=== PATIENT | female | born 1960 | race Caucasian/White ===

== ENCOUNTER 2019-09-12 13:30 | Outpatient (CLI) | payer OTHER, SELFPAY ==
--- NOTE | ~2019-09-12 | CT_ITS ---
EXAMINATION: CT abdomen wo con DATE: 09/12/2019 14:33 INDICATION: Left upper quadrant abdominal pain TECHNIQUE: Computed tomography (CT) of the abdomen was performed without intravenous contrast. Automa cece exposure control and iterative reconstruction technique were employed. Exam dose: 843.42 mGy-cm total exam DLP. COMPARISON: None. FINDINGS: There is discoid atelectasis or scarring in the lower lung zones. No consolidation is noted . Heart size is within normal range. There is no pericardial or pleural effusion. Small sliding hiatal hernia. The liver, spleen, pancreas, and adrenal glands are unremarkable. Approximately 3 mm nonobstructing lower pole right renal calculus. Approximately 1.7 cm exophytic soft tissue density is noted at the lateral aspect of the upper pole o f the left kidney; hypernephroma is not excluded. Further evaluation is recommended with either CT ex amination with IV contrast material or MRI. Normal caliber of the abdominal aorta. No intraperitoneal or retroperitoneal or pelvic mass lesion o r adenopathy or ascites is noted otherwise. Diverticulosis of the left and right colon. No CT evidence of diverticulitis. No bowel obstruction or intraperitoneal free air is detected. Included skeletal structures are unremarkable. IMPRESSION: 1.7 cm soft tissue exophytic mass at upper pole of left kidney; hypernephroma is not exc luded. Evaluation by CT examination with IV contrast material or MRI is recommended. Small nonobstructing lower pole right renal calculus Small sliding hiatal hernia Diverticulosis of the colon Reviewed, dictated and finalized at [facility]. Reviewed, dictated and finalized at location A. IMPRESSION: 1.7 cm soft tissue exophytic mass at upper pole of left kidney; hy pernephroma is not excluded. Evaluation by CT examination with IV contrast mate rial or MRI is recommended. Small nonobstructing lower pole right renal calculus Small sliding hiatal hernia Diverticulosis of the colon
== END 2019-09-12 13:31 | disposition home or self-care (01) ==
PROVIDERS: PCP Family Medicine; Visit Provider Family Medicine
DX: N20.0 Calculus of kidney (principal); K44.9 Diaphragmatic hernia without obstruction or gangrene; K57.90 Diverticulosis of intestine, part unspecified, without perforation or abscess without bleeding
CPT/HCPCS: 74150

== ENCOUNTER 2019-09-24 16:36 | Outpatient (CLI) | payer OTHER, SELFPAY ==
--- NOTE | ~2019-09-24 | MR_ITS ---
EXAMINATION: MR abdomen wo/w con DATE: 09/24/2019 17:46 INDICATION: Left kidney mass. TECHNIQUE: Magnetic resonance imaging (MRI) of the abdomen was performed without and with 20 mL Multi Ammy intravenous contrast. Sequences included coronal T2-weighted FS FSE, coronal and axial FIESTA F S, coronal LAVA-flex, axial LAVA, axial T2-weighted FSE, axial T1-weighted dual-echo FSPGR, axial STI R FSE, and axial DWI. Postcontrast sequences included coronal LAVA-flex and a time course of axial LA VA. COMPARISON: CT abdomen 09/12/2019 FINDINGS: There is diffuse hepatic steatosis. There is a 4 mm cyst in the liver. The gallbladder, common duct, spleen, pancreas, adrenal glands, and right kidney are normal. There is a 1.7 cm cyst in left kidney correlating with the CT abnormality. There is diverticulosis of the colon without evidence of diverti culitis. There are no dilated loops of bowel. There are no pathologically enlarged lymph nodes. There is no free intraperitoneal fluid. IMPRESSION: 1. Benign cyst in left kidney. Reviewed, dictated and finalized at location A.
[2019-09-24 17:29] LABS: Estimated Glomerular Filt Rate > 60
== END 2019-09-24 16:37 | disposition home or self-care (01) ==
PROVIDERS: PCP Family Medicine; Visit Provider Family Medicine
DX: N28.1 Cyst of kidney, acquired (principal)
CPT/HCPCS: 36415; 74183; A9577

== ENCOUNTER 2019-10-04 08:55 | Outpatient (CLI) | payer OTHER, SELFPAY ==
--- NOTE | ~2019-10-04 | MM_ITS ---
EXAMINATION: MM screening jamir BI w miquel HISTORY: Screening mammogram TECHNIQUE: Craniocaudal and mediolateral oblique 3-D tomosynthesis images were obtained and synthetic 2-D images were generated. CAD analysis was submitted and interpreted. COMPARISON: No prior mammogram is available for comparison at this institution. BREAST PARENCHYMAL COMPOSITION: There are scattered areas of fibroglandular density. FINDINGS: There are focal asymmetries in the right breast in the upper outer quadrant and subareolar locations. There is no mammographic evidence for malignancy in the left breast. IMPRESSION: 1. Focal right breast asymmetries. 2. Additional spot compression and mediolateral views with possible follow-up breast ultrasound recom mended. BI-RADS Category 0: Incomplete: Needs additional imaging evaluation. Reviewed, dictated and finalized at location A. IMPRESSION: 1. Focal right breast asymmetries. 2. Additional spot compression and mediolateral views with possible follow-up b reast ultrasound recommended. BI-RADS Category 0: Incomplete: Needs additional imaging evaluation.
== END 2019-10-04 08:56 | disposition home or self-care (01) ==
PROVIDERS: PCP Family Medicine; Visit Provider Obstetrics & Gynecology Gynecology
DX: Z12.31 Encounter for screening mammogram for malignant neoplasm of breast (principal); R92.8 Other abnormal and inconclusive findings on diagnostic imaging of breast
CPT/HCPCS: 77063; 77067

== ENCOUNTER → 2019-10-17 07:46 | Outpatient (CLI) | payer OTHER, SELFPAY ==
--- NOTE | ~2019-10-17 | MMUS_ITS ---
EXAMINATION: MM diagnostic mammo unilat RT, US breast RT limited HISTORY: Right breast asymmetries on screening mammogram TECHNIQUE: Additional 3-D tomosynthesis images of the right breast were performed and synthetic 2-D i mages were generated. CAD analysis was submitted and interpreted. High resolution limited right breas t ultrasound was performed. COMPARISON: 10/04/2019, 01/23/2015, 04/24/2013, 09/10/2010 FINDINGS: MAMMOGRAPHIC FINDINGS: There is a return to baseline fibroglandular appearance with spot compression in the areas questioned on recent screening mammogram. No suspicious mass, calcification, or architectural distortion is jean paul ntified. ULTRASOUND: There is a 10 mm x 5 mm oval, circumscribed, parallel, hypoechoic mass with no posterior features or internal vascularity at the 9:00 location projecting near the nipple. A 5 mm x 1 mm mass with similar sonographic features is seen at the 8:00 location 4.5 cm from the nipple. IMPRESSION: 1. Probably benign right breast masses. 2. Recommend 6 month follow-up right diagnostic mammogram and ultrasound. BI-RADS category 3, probably benign findings. Reviewed, dictated and finalized at location A. IMPRESSION: 1. Probably benign right breast masses. 2. Recommend 6 month follow-up right diagnostic mammogram and ultrasound. BI-RADS category 3, probably benign findings.
== END ==
PROVIDERS: Visit Provider Obstetrics & Gynecology Gynecology
DX: R92.8 Other abnormal and inconclusive findings on diagnostic imaging of breast (principal)
CPT/HCPCS: 76642; 77065

== ENCOUNTER → 2020-01-19 10:47 | Outpatient (CLI) | payer OTHER, SELFPAY ==
--- NOTE | ~2020-01-19 | US_ITS ---
EXAMINATION: US transvaginal DATE: 01/19/2020 11:15 INDICATION: Postmenopausal bleeding TECHNIQUE: Multiple endovaginal sonographic images of the pelvis were obtained. COMPARISON: None. FINDINGS: The uterus measures 5.5 x 2.5 x 3.8 cm. The endometrial complex measures 4 mm. The ovaries are not visualized however no adnexal abnormality is seen. There is no free fluid in the pelvis. IMPRESSION: 1. No sonographic correlate for the patient's symptoms. Reviewed, dictated and finalized at location A.
== END ==
PROVIDERS: Visit Provider Obstetrics & Gynecology Gynecology
DX: N95.0 Postmenopausal bleeding (principal)
CPT/HCPCS: 76830

== ENCOUNTER 2020-06-23 17:31 | Outpatient (CLI) | payer BC, SELFPAY | END 2020-06-23 17:32 | disposition home or self-care (01) | LOC: ANHCOVIDVC 17:31 | PROVIDERS: PCP Obstetrics & Gynecology Gynecology | DX: Z23 Encounter for immunization (principal) | CPT/HCPCS: 0001A; 91300 ==

== ENCOUNTER 2020-07-14 17:29 | Outpatient (CLI) | payer BC, SELFPAY | END 2020-07-14 17:30 | disposition home or self-care (01) | LOC: ANHCOVIDVC 17:29 | PROVIDERS: PCP Obstetrics & Gynecology Gynecology | DX: Z23 Encounter for immunization (principal) | CPT/HCPCS: 0002A; 91300 ==

== ENCOUNTER → 2020-10-12 09:14 | Outpatient (CLI) | payer BC, SELFPAY ==
--- NOTE | ~2020-10-12 | MMUS_ITS ---
EXAMINATION: MM diagnostic jamir BI w miquel, US breast RT limited HISTORY: Patient overdue for follow-up of probably benign right breast masses TECHNIQUE: Craniocaudal, mediolateral, and mediolateral oblique 3-D tomosynthesis images of the marcelina ts were performed and synthetic 2-D images were generated. CAD analysis was submitted and interpreted . High resolution limited right breast ultrasound was performed. COMPARISON: 10/17/2019, 10/04/2019, 01/23/2015 BREAST PARENCHYMAL COMPOSITION: There are scattered areas of fibroglandular density. FINDINGS: MAMMOGRAPHIC FINDINGS: There is no evidence of suspicious mass, calcification, or architectural distortion in either breast to suggest malignancy. There has been no suspicious interval change. ULTRASOUND: There is a 1.3 x 0.4 cm oval, circumscribed, parallel, hypoechoic mass with no posterior features or internal vascularity at the 9:00 location near the nipple which is not significantly changed. A 3 mm x 1 mm mass with similar sonographic features at the 8:00 location 4.5 cm from the nipple is decrease d in size, consistent with a benign finding. IMPRESSION: 1. Probably benign sonographically detected right breast mass. 2. Given one year of interval stability, recommend 12 month followup diagnostic mammogram and ultraso und. BI-RADS category 3, probably benign findings. Reviewed, dictated and finalized at location A. IMPRESSION: 1. Probably benign sonographically detected right breast mass. 2. Given one year of interval stability, recommend 12 month followup diagnostic mammogram and ultrasound. BI-RADS category 3, probably benign findings.
== END ==
PROVIDERS: PCP Family Medicine; Visit Provider Obstetrics & Gynecology Gynecology
DX: R92.8 Other abnormal and inconclusive findings on diagnostic imaging of breast (principal)
CPT/HCPCS: 76642; 77062; 77066; G0279

== ENCOUNTER → 2022-01-06 08:52 | Outpatient (CLI) | payer BC, SELFPAY ==
--- NOTE | ~2022-01-06 | MMUS_ITS ---
EXAMINATION: MM diagnostic jamir BI w miquel, US breast RT limited HISTORY: 12 month follow-up TECHNIQUE: ML, MLO and CC 3-D tomosynthesis images of both breasts were performed and synthetic 2-D i mages were generated. CAD analysis was submitted and interpreted. High resolution limited right breas t ultrasound was performed. COMPARISON: 10/12/2020 bilateral diagnostic mammogram and limited right breast ultrasound 10/17/2019 diagnostic right mammogram and limited right breast ultrasound 10/04/2019 bilateral screening mammogram BREAST PARENCHYMAL COMPOSITION: There are scattered areas of fibroglandular density. FINDINGS: MAMMOGRAPHIC FINDINGS: No suspicious mass or architectural distortion, malignant calcification, skin thickening or retractio n or significant new or developing density is detected. ULTRASOUND: 9:00 near nipple: 3.5 x 4.4 x 6.2 mm parallel circumscribed hypoechoic lesion without suspicious shad owing. This is significantly diminished in size since 10/12/2020, consistent with benign process. 10:00 4.5 cm from nipple: Parallel circumscribed sonolucency measuring 1.2 x 2.4 x 2.8 mm, stable, be nign in appearance. IMPRESSION: 1. No mammographic evidence of malignancy 2. Routine annual mammographic screening is recommended BI-RADS Category 2: Benign finding(s). Reviewed, dictated and finalized at location A. IMPRESSION: 1. No mammographic evidence of malignancy 2. Routine annual mammographic screening is recommended BI-RADS Category 2: Benign finding(s).
== END ==
PROVIDERS: PCP Family Medicine; Visit Provider Obstetrics & Gynecology Gynecology
DX: R92.8 Other abnormal and inconclusive findings on diagnostic imaging of breast (principal)
CPT/HCPCS: 76642; 77062; 77066; G0279

== ENCOUNTER 2024-04-15 09:13 | Emergency (ER) | payer OTHER, SELFPAY ==
--- NOTE | ~2024-04-15 | XR_ITS ---
XR ankle RT min 3V Ordering provider: Trisha Olson MD History: . fall LATERAL SWELLING AND BRUISING . Comparison: None. FINDINGS: BONES: Nondisplaced fracture of the lateral malleolus. JOINT SPACES: Normal. SOFT TISSUES: Soft tissue swelling over the lateral malleolus. Ossification of the insertion of the tendo Achilles. Calcaneal spur. IMPRESSION: Fracture of the lateral malleolus. Reviewed, dictated and finalized at location A. EYOR CHAIN HELPER
[2024-04-15 09:18] VITALS: BP 142/79; PULSE 92; RESP 18; TEMP 36.6; O2SAT 97
--- NOTE | 2024-04-15 11:17 | ED.LOWEXIN ---
HPI - Extremity Injury (Lower) General Chief Complaint: Extremity Injury, Lower Stated Complaint: right ankle injury Time Seen by Provider: 04/15/24 11:10 Source: patient Mode of arrival: ambulatory Limitations: no limitations History of Present Illness HPI Narrative: This is a 63-year-old female that presents to the emergency department after a fall yesterday with right ankle pain. Reports she slipped and twisted the ankle. She did not hit her head or lose consciousness. Has had worsening pain and swelling since. Denies decreased range of motion or numbness. Related Data Allergies Allergy/AdvReac Type Severity Reaction Status Date / Time Penicillins Allergy Hives Verified 04/15/24 09:21 Review of Systems Review of Systems: CONSTITUTIONAL: Denies fever MUSCULOSKELETAL: Reports joint pain, and myalgia. NEUROLOGIC: Denies numbness All systems reviewed & are unremarkable except as noted in HPI and below PMFSH Social History Social History (Updated 04/15/24 @ 11:20 by Prema Plunkett PA-C) Substance use: never Exam Narrative: GENERAL: Well-appearing, well-nourished, and in no acute distress. HEAD: Normocephalic, atraumatic. EYES: EOMI. EXTREMITIES: Normal range of motion. Edema about the right lateral malleoli. Normal DP pulse. Normal sensation SKIN: Warm, dry, no rash. NEURO: No focal deficits. Alert and oriented x3. PSYCH: Normal mood and affect Course Course Emergency Course: Patient updated on her workup and agrees with plan of care Vital Signs Vital signs: Vital Signs Temperature 97.9 F 04/15/24 09:18 Pulse Rate 92 04/15/24 09:18 Respiratory Rate 18 04/15/24 09:18 Blood Pressure 142/79 H 04/15/24 09:18 Pulse Oximetry 97 04/15/24 09:18 Oxygen Delivery Room Air 04/15/24 09:18 Temperature 97.9 F 04/15/24 09:18 Pulse Rate 92 04/15/24 09:18 Respiratory Rate 18 04/15/24 09:18 Blood Pressure 142/79 H 04/15/24 09:18 Pulse Oximetry 97 04/15/24 09:18 Oxygen Delivery Room Air 04/15/24 09:18 Procedures Orthopedic Splinting/Casting Injury #1: Splinting/Casting Date: 04/15/24 Splinting/Casting Time: 11:21 Side: right Lower Extremity Injury Location: ankle Lower Extremity Immobilizer: posterior splint Splint: customized in ED OCL: short leg Pre-Procedure Neuro Vascular Exam: normal Post-Procedure Neuro Vascular Exam: normal Other Orthopedic Equipment: crutches MDM - Extremity Injury (Lower) MDM Narrative Medical decision making narrative: Patient presents to the emergency department after a right ankle injury yesterday. She is neurovascularly intact. Right ankle x-ray shows fracture of the lateral malleolus. Patient placed in short-leg posterior and given crutches. Will be given follow-up with Orthopedics. She was given warnings to return to the ER Differential Diagnosis Differential diagnosis: Likely ankle sprain and strain and ankle fracture Imaging Data Radiologist's impression: ITS Impressions Ankle X-Ray 04/15/24 09:55 IMPRESSION: Fracture of the lateral malleolus. Critical Care Time Critical Care Time Critical Care Time: No Discharge Plan Discharge Clinical Impression: Fracture of distal end of fibula Qualifiers: Encounter type: initial encounter Fracture type: closed Fracture morphology: unspecified fracture morphology Laterality: right Qualified Code(s): S82.831A - Other fracture of upper and lower end of right fibula, initial encounter for closed fracture Patient Disposition: Home, Self-Care Condition: Stable Instructions: Ankle Fracture (ED) Additional Instructions: Return to the ER if you experience fever, redness and swelling of your extremity, numbness or any other symptoms that are concerning to you Wear splint and use crutches or walker. No weight on the affected leg. Ice and elevate extremity. Tylenol or ibuprofen as needed for pain. Prescribed pain medication as needed Follow up with Orthopedics for further care. Patient Language: Liberian Prescriptions: New hydrocodone-acetaminophen 5-325 mg tablet 1 tablet PO Q6H PRN (Reason: pain) Qty: 14 0RF Follow-up/Referrals: PHYSICIAN,CODING SPECIALIST [Primary Care Provider] - Amandeep Booth MD [Physician] - Stand Alone Forms: Work/School Release IP
[2024-04-15 12:05] VITALS: BP 140/72; PULSE 70; RESP 16; O2SAT 100
== END 2024-04-15 12:23 | disposition home or self-care (01) ==
LOC: ANHED 11:33
PROVIDERS: Emergency Provider Physician Assistant
DX: S82.831A Other fracture of upper and lower end of right fibula, initial encounter for closed fracture (principal); X50.1XXA Overexertion from prolonged static or awkward postures, initial encounter
CPT/HCPCS: 29515; 73610; 99284

== ENCOUNTER 2024-05-28 17:35 | Emergency (ER) | payer OTHER, SELFPAY ==
[2024-05-28 17:50] VITALS: BP 147/81; PULSE 97; RESP 16; TEMP 36.3; O2SAT 99
--- NOTE | 2024-05-28 18:31 | ED.SKABFB ---
HPI - Skin/Abscess/Foreign Bdy General Chief complaint: Skin/Abscess/Foreign Body Stated complaint: RASH Time Seen by Provider: 05/28/24 18:31 Source: patient Mode of arrival: ambulatory Limitations: no limitations History of Present Illness HPI narrative: 63-year-old female presents with complaint of itchy, sore rash under left breast. Patient states that she has a broken foot and also recently had flu. Has not been bathing as much as usual due to injury and illness. Has been laying in bed the last 2-3 days with fever and sweating. Thinks This is what caused rash. Systems reviewed and negative except as noted above. Related Data Allergies Allergy/AdvReac Type Severity Reaction Status Date / Time Penicillins Allergy Hives Verified 05/28/24 18:02 Review of Systems Review of Systems: CONSTITUTIONAL: Denies fever, chills, or sweats. EYES: Denies visual changes, redness, or discharge. ENT: Denies rhinorrhea, congestion, sore throat, or otalgia. CARDIOVASCULAR: Denies chest pain, palpitations, or edema. RESPIRATORY: Denies cough or dyspnea. GASTROINTESTINAL: Denies abdominal pain, nausea, vomiting, or diarrhea. GENITOURINARY: Denies dysuria or hematuria. SKIN: Reports rash and itching under left breast. MUSCULOSKELETAL: Denies back pain, joint pain, or myalgia. NEUROLOGIC: Denies headache, numbness, or weakness. PSYCHIATRIC: Denies anxiety or depression. All other systems reviewed are negative, except as documented in HPI. PMFSH Social History Social History Smoking status: Never smoker Substance use: never Do You Feel Safe in your Home?: Yes Lack of Transportation: No Lack of Food: Never True Current Housing: I Have Housing Concerned About Future Housing: No Difficulty Paying Gas/Electric Bills: No Difficulty Paying for Meds: No Currently Unemployed: No Education: Decline to Answer Difficulty w/ Childcare or Family Care: No Comments At time of signature, agree with nursing past medical, surgical, social and family history. There is no relevant family history pertinent to the presenting complaint. Exam Narrative: GENERAL: This is a well-nourished, well-developed patient, in no apparent distress. HEAD: normocephalic, atraumatic. EYES: PERRL. Sclera clear/white. Vision is grossly intact. EARS: External ears normal NOSE: External nose normal NECK: Neck supple, non-tender without lymphadenopathy, masses or thyromegaly. CARDIOVASCULAR: Regular rate and rhythm without murmurs, gallops, or rubs. RESPIRATORY: Clear to auscultation. Breath sounds equal bilaterally. No wheezes, rales, or rhonchi. SKIN: warm, Dry, intact , good texture and turgor. Erythematous, what clear drainage with satellite lesions under left breast. NEURO: awake, alert, and oriented to person, place and time. There were no obvious focal neurologic abnormalities. EXTREMITIES: No joint tenderness, effusion, or edema noted. Course Course Level of Care: Express Care Visit Vital Signs Vital signs: Vital Signs Temperature 36.3 C L 05/28/24 17:50 Pulse Rate 97 05/28/24 17:50 Respiratory Rate 16 05/28/24 17:50 Blood Pressure 147/81 H 05/28/24 17:50 Pulse Oximetry 99 05/28/24 17:50 Oxygen Delivery Room Air 05/28/24 17:50 Temperature 36.3 C L 05/28/24 17:50 Pulse Rate 97 05/28/24 17:50 Respiratory Rate 16 05/28/24 17:50 Blood Pressure 147/81 H 05/28/24 17:50 Pulse Oximetry 99 05/28/24 17:50 Oxygen Delivery Room Air 05/28/24 17:50 Reviewed Discharge Plan Discharge Clinical Impression: Skin yeast infection Patient Disposition: Home, Self-Care Condition: Stable Instructions: Skin Yeast Infection (ED) Additional Instructions: Apply antifungal cream as prescribed. Keep affected area clean and dry. Wash with soap and water, pat dry with towel. Follow-up with your primary care physician if not improving. Patient Language: Ugandan Prescriptions: New nystatin 100,000 unit/gram cream 1 applic topical BID 10 Days Qty: 30 0RF Follow-up/Referrals: PHYSICIAN,GENERAL MAINTENANCE MECHANIC [Primary Care Provider] - Stand Alone Forms: Work/School Release IP Time of Disposition: 18:37
== END 2024-05-28 18:42 | disposition home or self-care (01) ==
PROVIDERS: Emergency Provider Nurse Practitioner Family
DX: B37.2 Candidiasis of skin and nail (principal)
CPT/HCPCS: 99213; G0463

== ENCOUNTER 2024-07-03 12:51 | Outpatient (CLI) | payer OTHER, SELFPAY ==
--- NOTE | ~2024-07-03 | MM_ITS ---
EXAMINATION: MM screening [facility] BI w miquel HISTORY: Screening TECHNIQUE: Craniocaudal and mediolateral oblique 3-D tomosynthesis images were obtained and synthetic 2-D images were generated. CAD analysis was submitted and interpreted. COMPARISON: 01/06/2022 and dating back to 10/04/2019 BREAST PARENCHYMAL COMPOSITION: There are scattered areas of fibroglandular density. FINDINGS: Punctate calcifications are detected bilaterally, stable and benign in appearance. Stable parenchymal pattern without suspicious microcalcifications, architectural distortion, discrete masses or significant asymmetry. IMPRESSION: 1. No mammographic evidence of malignancy. 2. Recommend routine screening mammography in one year. BI-RADS Category 2: Benign finding(s). Reviewed, dictated and finalized at location A.
== END 2024-07-03 12:52 | disposition home or self-care (01) ==
LOC: MICIMG 12:52
PROVIDERS: PCP Obstetrics & Gynecology Gynecology; Visit Provider Obstetrics & Gynecology Gynecology
DX: Z12.31 Encounter for screening mammogram for malignant neoplasm of breast (principal)
CPT/HCPCS: 77063; 77067

== ENCOUNTER 2024-08-02 08:59 | Outpatient (CLI) | payer OTHER, SELFPAY ==
--- NOTE | ~2024-08-02 | MR_ITS ---
EXAMINATION: MR foot RT wo con DATE: 08/02/2024 09:43 INDICATION: Right forefoot pain with numbness in the fourth and fifth toes since injury with fibular fracture 3 months prior. TECHNIQUE: Magnetic resonance imaging (MRI) of the right foot was performed without intravenous contr ast. Sequences centered at the mid and forefoot included sagittal T1-weighted FSE, sagittal fluid sen sitive FSE STIR, coronal PD-weighted FS FSE, coronal T1-weighted FSE, axial PD-weighted FS FSE, and a xial PD-weighted FSE. Additional axial PD-weighted FSE, coronal T1-weighted FSE and sagittal fluid se nsitive FSE STIR sequences were obtained centered at the ankle and hindfoot. COMPARISON: Radiographs the right ankle dated 06/13/2024 FINDINGS: There is mild increased fluid signal along the minimally displaced oblique fracture of the distal fib nils with the medial fracture margin located at the level of the tibiotalar joint line. There is no de finitive bridging T1 fat signal to suggest solid but would recommend correlation with radiographs for better assessment of degree of healing. No other fractures identified. Specifically no fracture in t he right foot. There is mild polyarticular osteoarthritis at the tibiotalar joint, the naviculocuneif orm joint and multiple tarsal metatarsal, metatarsophalangeal and interphalangeal joints. There is li stalin secondary subarticular edema-like signal change most prominent along the talar dome, at the fabio culocuneiform and first tarsal metatarsal joints as well as at the plantar aspect of the first metata rsal along its articulation with the tibial sesamoid. Additional nonspecific marrow edema along with some surrounding soft tissue edema at the heads of the second and fourth metatarsals without evident fracture line but which could represent stress reaction. Small ankle joint effusion. Moderate-sized A chilles and plantar calcaneal spurs with mild enthesopathy at the distal Achilles tendon and at the c entral component of the plantar aponeurosis. Remaining flexor and extensor tendons of the foot and an kle are normal. The stabilizing ligaments at the medial and lateral ankle, the Lisfranc ligament comp rojelio and the collateral ligament complex at the metatarsophalangeal and interphalangeal joints are all normal. IMPRESSION: 1. Marrow edema and mild surrounding soft tissue edema at the heads of the second and fourth metatars als without evident fracture line which is nonspecific but could be seen with stress reaction. 2. Minimally displaced fracture of the distal fibula without definitive solid bridging. Would conside r correlation with plain radiographs to better assess for degree of healing. 3. 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 Reviewed, dictated and finalized at location A. IMPRESSION: 1. Marrow edema and mild surrounding soft tissue edema at the heads of the seco nd and fourth metatarsals without evident fracture line which is nonspecific bu t could be seen with stress reaction. 2. Minimally displaced fracture of the distal fibula without definitive solid b ridging. Would consider correlation with plain radiographs to better assess for degree of healing. 3. 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
== END 2024-08-02 09:00 | disposition home or self-care (01) ==
LOC: MICIMG 09:00
PROVIDERS: PCP Physician Assistant Surgical; Visit Provider Physician Assistant Surgical
DX: S82.831D Other fracture of upper and lower end of right fibula, subsequent encounter for closed fracture with routine healing (principal); X58.XXXD Exposure to other specified factors, subsequent encounter
CPT/HCPCS: 73718

== ENCOUNTER 2024-08-07 17:22 | Outpatient (CLI) | payer OTHER, SELFPAY ==
--- NOTE | ~2024-08-07 | XR_ITS ---
XR ankle RT min 3V 08/07/2024 17:43 Indication: Right ankle fracture follow-up Procedure: 4 views right ankle Comparison: 06/13/2024 Findings: There is a mildly displaced oblique distal fibular fracture with mild soft tissue swelling. There is incomplete osseous union. There is some development of callus formation. Prominent degenera tive calcaneal enthesophytes. Impression: 1: Incomplete healing of mildly displaced oblique distal fibular fracture. Reviewed, dictated and finalized at location A. Impression: 1: Incomplete healing of mildly displaced oblique distal fibular fracture.
== END 2024-08-07 17:23 | disposition home or self-care (01) ==
PROVIDERS: PCP Physician Assistant Surgical; Visit Provider Orthopaedic Surgery
DX: S82.831D Other fracture of upper and lower end of right fibula, subsequent encounter for closed fracture with routine healing (principal); X58.XXXD Exposure to other specified factors, subsequent encounter
CPT/HCPCS: 73610

== ENCOUNTER 2025-02-05 15:41 | Emergency (ER) | payer OTHER, SELFPAY ==
--- NOTE | ~2025-02-05 | US_ITS ---
LEFT LOWER EXTREMITY VENOUS DUPLEX Clinical History: left leg pain r/o DVT COMPARISON: None TECHNIQUE: Grayscale, color, duplex/spectral Doppler sonography left leg FINDINGS: Left leg common femoral, femoral, popliteal, and calf veins compressible and color Doppler patent. Normal augmentation with distal compression. No internal echoes. IMPRESSION: 1. No left leg DVT. Reviewed, dictated and finalized at location R. IMPRESSION: 1. No left leg DVT.
--- NOTE | ~2025-02-05 | XR_ITS ---
XR knee LT min 4V INDICATION: knee pain-posterior and lateral . COMPARISON: None. FINDINGS: Frontal, lateral and oblique views of the left knee demonstrate no acute fracture or dislocation. There is no joint effusion. Degenerative changes with joint space narrowing. There is enthesophyte seen at the quadriceps tendon attachment on the patella at the patellar attachment on the tibia. IMPRESSION: Radiographic examination of the left knee demonstrates no acute fracture or dislocation. Reviewed, dictated and finalized at location S. IMPRESSION: Radiographic examination of the left knee demonstrates no acute fracture or dis location.
[2025-02-05 15:43] VITALS: BP 178/86; PULSE 108; RESP 18; TEMP 36.7; O2SAT 98
--- NOTE | 2025-02-05 18:33 | ED_ITS ---
HPI - Extremity Problem General Chief complaint: Extremity Problem,Nontraumatic <Poncho Lawton APRN - Last Filed: 02/05/25 18:46> Stated complaint: I feel like I have a pulled muscle in my knee <Poncho Lawton APRN - Last Filed: 02/05/25 18:46> Time Seen by Provider: 02/05/25 18:34 <Poncho Lawton APRN - Last Filed: 02/05/25 18:46> Focused HPI: Lisseth is a 64-year-old female patient presenting to the ED with complaints of posterior/lateral left knee pain. No known injury recently. Twisted her knee back in September when she injured her fractured her ankle/foot. No lower extremity swelling or redness. Denies any calf pain. No SOB/CP. History of blood clots in her family so she is concerned for a blood clot. No personal history of clotting disorder. Does have varicose veins. GENERAL: Well-appearing, obese, and in no acute distress. HEAD: Normocephalic, atraumatic. CHEST: Clear to auscultation. No respiratory distress. HEART: Regular rate and rhythm. NEURO: Alert and oriented x3. Patient screened in triage and initial orders placed. Additional care and disposition to be based upon diagnostic testing and treatment. <Poncho Lawton APRN - Last Filed: 02/05/25 18:46> Source: patient <Poncho Lawton APRN - Last Filed: 02/05/25 18:46> Mode of arrival: ambulatory <Poncho Lawton APRN - Last Filed: 02/05/25 18:46> Limitations: no limitations <Poncho Lawton APRN - Last Filed: 02/05/25 18:46> History of Present Illness HPI Narrative: Agree with HPI. Has been using aspirin and CBD cream with some relief. <Chrissy Mcleod PA-C - Last Filed: 02/05/25 21:57> Related Data Home medications: Home Medications ?Medication ?Instructions ?Recorded ?Confirmed ?Last Taken ?Type No Home Medications 07/17/24 09/20/24 U nknown History <Poncho Lawton APRN - Last Filed: 02/05/25 18:46> Allergies/Adverse reactions: Allergies Allergy/AdvReac Type Severity Reaction Status Date / Time Penicillins Allergy Hives Verified 09/15/24 10:02 <Poncho Lawton APRN - Last Filed: 02/05/25 18:46> Review of Systems Review of Systems: All systems reviewed & are unremarkable except as noted in HPI. <Chrissy Mcleod PA-C - Last Filed: 02/05/25 21:57> All systems reviewed & are unremarkable except as noted in HPI and below <Chrissy Mcleod PA-C - Last Filed: 02/05/25 21:57> [facility] Social History Social History: Social History Smoking status: Never smoker Substance use: never Do You Feel Safe in your Home?: Yes Lack of Transportation: No Lack of Food: Never True Current Housing: I Have Housing Concerned About Future Housing: No Difficulty Paying Gas/Electric Bills: No Difficulty Paying for Meds: No Currently Unemployed: No Education: Decline to Answer Difficulty w/ Childcare or Family Care: No <Poncho Lawton APRN - Last Filed: 02/05/25 18:46> Exam Narrative: GENERAL: Well appearing, obese with BMI of 35.9, non-toxic, in no acute distress. HEAD: Normocephalic, atraumatic. RESPIRATORY: Airway patent, respirations nonlabored. CARDIOVASCULAR: Regular rate and rhythm. Pedal pulses intact and easily palpable MUSCULOSKELETAL: Moves all extremities. No gross deformities. Mild tenderness to palpation throughout proximal calf, left lateral calf. No significant swelling. No fullness in popliteal region. Sensation intact throughout extremity. No erythema warmth. SKIN: Warm, dry, normal color. NEURO: A&O X3. Speech clear. Cranial nerves II-XII grossly intact. Steady gait. No ataxic movements. PSYCHIATRIC: Appropriate mood and affect. Normal interaction. <Chrissy Mcleod PA-C - Last Filed: 02/05/25 21:57> Course Vital Signs Vital signs: Vital Signs Temperature 98.1 F 02/05/25 15:43 Pulse Rate 108 H 02/05/25 15:43 Respiratory Rate 18 02/05/25 15:43 Blood Pressure 178/86 H 02/05/25 15:43 Pulse Oximetry 98 02/05/25 15:43 Oxygen Delivery Room Air 02/05/25 15:43 Temperature 98.1 F 02/05/25 15:43 Pulse Rate 108 H 02/05/25 15:43 Respiratory Rate 18 02/05/25 15:43 Blood Pressure 178/86 H 02/05/25 15:43 Pulse Oximetry 98 02/05/25 15:43 Oxygen Delivery Room Air 02/05/25 15:43 <Poncho Lawton OCCUPATIONAL REHABILITATION AIDE - Last Filed: 02/05/25 18:46> Vital Signs Temperature 98.1 F 02/05/25 15:43 Pulse Rate 108 H 02/05/25 15:43 Respiratory Rate 18 02/05/25 15:43 Blood Pressure 178/86 H 02/05/25 15:43 Pulse Oximetry 98 02/05/25 15:43 Oxygen Delivery Room Air 02/05/25 15:43 Temperature 98.1 F 02/05/25 15:43 Pulse Rate 108 H 02/05/25 15:43 Respiratory Rate 18 02/05/25 15:43 Blood Pressure 178/86 H 02/05/25 15:43 Pulse Oximetry 98 02/05/25 15:43 Oxygen Delivery Room Air 02/05/25 15:43 <Chrissy Mcleod PA-C - Last Filed: 02/05/25 21:57> MDM - Extremity (Nontraumatic) MDM Narrative Medical decision making narrative: Patient?s injury is consistent with musculoskeletal etiology. No signs of neurologic or vascular compromise on physical examination. Compartments are soft without signs of compartment syndrome. XR of left knee negative, no fracture dislocation, no joint effusion. Venous Doppler ultrasound of left lower extremity also negative for DVT. No evidence of Casey cyst. Pain is consistent with strain of knee. Patient is felt to be stable for discharge home and further outpatient management and treatment. Offered Yuri bandage, but patient reports she has 1 of these at home. Discussed rice therapy, follow-up with orthopedics for further evaluation if needed. She has previously seen Dr. Vazquez present for recent right leg fracture. Discussed continue management of pain at home. Discussed return precautions. Discharged in stable condition. <Chrissy Mcleod PA-C - Last Filed: 02/05/25 21:57> Medical Records Attestation: I reviewed the patient's medical records. <Chrissy Mcleod PA-C - Last Filed: 02/05/25 21:57> Imaging Data Attestation: I personally reviewed and interpreted this imaging study as follows: <Chrissy Mcleod PA-C - Last Filed: 02/05/25 21:57> Radiologist's impression: ITS Impressions Knee X-Ray 02/05/25 18:54 IMPRESSION: Radiographic examination of the left knee demonstrates no acute fracture or dislocation. Venous Doppler Study 02/05/25 19:02 IMPRESSION: 1. No left leg DVT. <Chrissy Mcleod PA-C - Last Filed: 02/05/25 21:57> Discharge Plan Discharge Clinical Impression: Pain of knee and lower leg Qualifiers: Laterality: left Qualified Code(s): M25.562 - Pain in left knee <Poncho Lawton APRN - Last Filed: 02/05/25 18:46> Patient Disposition: Home <Poncho Lawton APRN - Last Filed: 02/05/25 18:46> Condition: Stable <Poncho Lawton APRN - Last Filed: 02/05/25 18:46> Instructions: Antibiotic Form, Knee Sprain (ED), Leg Sprain (ED) <Poncho Lawton APRN - Last Filed: 02/05/25 18:46> Additional Instructions: Rest and keep leg elevated as much as possible. Recommend frequent icing to knee/leg. Utilize Yuri bandage for compression/support. Recommend Tylenol/ibuprofen as needed for pain. Follow-up with orthopedics for further evaluation if needed. Return to the ED if you experience worsening or severe pain, swelling, numbness, or any other symptoms of concern. <Poncho Lawton APRN - Last Filed: 02/05/25 18:46> Patient Language: Slovenian <Poncho Lawton APRN - Last Filed: 02/05/25 18:46> Prescriptions: No Action No Home Medications <Poncho Lawton APRN - Last Filed: 02/05/25 18:46> Follow-up/Referrals: PHYSICIAN NOT ON STAFF,NONSTAFF [Non-Staff] Amandeep Booth MD [Physician, Orthopedics] Referral Note: ORTHOPEDICS <Poncho Lawton APRN - Last Filed: 02/05/25 18:46> Time of Disposition: 21:03 <Poncho Lawton APRN - Last Filed: 02/05/25 18:46> 21:03 <Chrissy Mcleod PA-C - Last Filed: 02/05/25 21:57>
== END 2025-02-05 21:10 | disposition home or self-care (01) ==
PROVIDERS: Emergency Provider Physician Assistant
DX: M25.562 Pain in left knee (principal); E66.9 Obesity, unspecified; Z68.35 Body mass index [BMI] 35.0-35.9, adult
CPT/HCPCS: 73564; 93971; 99284